=== PATIENT | female | born 1975 | race Caucasian/White ===

== ENCOUNTER 2023-12-21 04:03 | Emergency (ER) | payer OTHER ==
[~2023-12-21] VITALS: Ht 167.6 cm; Wt 72.6 kg
[2023-12-21] MEDS ORDERED: GABA-532 PO (04:27)
[2023-12-21] MEDS ORDERED: IBUP-1955 PO (04:27)
[2023-12-21 05:06] LABS: *BLOOD, URINE NEGATIVE (NEGATIVE); *COLOR,URINE YELLOW (YELLOW); *KETONES,URINE 1+ (NEGATIVE); *PROTEIN,URINE 1+ (NEGATIVE); LEUKOCYTE ESTERASE ,URINE 1+ (NEGATIVE); NITRITE, URINE POSITIVE (NEGATIVE); PH,URINE 5.5 (5.0-8.0); UGLUCOSE NEGATIVE (NEGATIVE)
[2023-12-21 05:17] LABS: *BILIRUBIN,URIN 2+ (NEGATIVE)
[2023-12-21 05:19] LABS: *CLARITY,URINE SLIGHTLY CLOUDY (CLEAR)
[2023-12-21 05:36] LABS: RBC,URINE 20-50 /HPF (0-3); WBC,URINE 80-100 /HPF (0-3)
[2023-12-21] MEDS ORDERED: CEphaleXIN 500 MG CAPSULE ONE (05:36)
[2023-12-21 05:37] LABS: BACTERIA,URINE MODERATE /HPF (NONE SEEN); SQUAMOUS EPITHELIAL CELL,UR MANY /HPF (NONE SEEN)
[2023-12-21] MEDS ORDERED: HYDROCODONE/APAP 5-325MG TABLET ONE (05:37)
[2023-12-21] MEDS: HYDROCODONE/APAP 5-325MG TABLET PO ONE (05:51)
[2023-12-21] MEDS: CEphaleXIN 500 MG CAPSULE PO ONE (05:53)
[2023-12-21] MEDS ORDERED: CYCL5TAB PO (06:08)
[2023-12-21] MEDS ORDERED: CEPH500C2 PO (06:08)
[2023-12-21] MEDS ORDERED: HYDR-4209 PO (06:09)
[2023-12-21 06:17] VITALS: BP 125/79; TEMP 98.6; O2SAT 99
[2023-12-22] MEDS ORDERED: HYDR-3972 PO (08:10)
== END 2023-12-21 06:17 | disposition home or self-care (01) ==
LOC: ER 04:21
DX: M16.11 Unilateral primary osteoarthritis, right hip (principal); M25.551 Pain in right hip; M54.50 Low back pain, unspecified; M79.651 Pain in right thigh; N39.0 Urinary tract infection, site not specified; Z79.1 Long term (current) use of non-steroidal anti-inflammatories (NSAID); Z79.899 Other long term (current) drug therapy
CPT/HCPCS: 72100; 72170; 73502; 73551; A4606; A4663